=== PATIENT | female | born 1950 | race Caucasian/White ===

== ENCOUNTER 2016-11-15 09:42 | Emergency (ER) | payer OTHER ==
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
[2016-11-15 10:27] LABS: BASOPHIL % 0.7 %; EOSINOPHIL # 0.2 K/uL (0.0-0.5); EOSINOPHIL % 2.6 %; HEMATOCRIT 36.3 % (33.0-46.0); HEMOGLOBIN 12.2 g/dL (10.0-15.0); IMMATURE GRANULOCYTE % 0.2 %; LYMPHOCYTE # 1.5 K/uL (0.8-4.0); LYMPHOCYTE % 26.3 %; MCH 31.5 pg (27.0-34.0); MCHC 33.6 gm/dL (32.0-36.5); MCV 93.8 fl (83.0-98.0); MONOCYTE # 0.3 K/uL (0.0-1.0); MONOCYTE % 5.8 %; MPV 9.1 fl (9.4-12.4); NEUTROPHIL # (ANC) 3.7 K/uL (1.8-7.8); NEUTROPHIL % 64.4 %; NRBC % 0 /100WBC (0-0.00); PLATELET COUNT 264 K/uL (150-450); RBC 3.87 M/uL (3.50-5.50); RDW-CV 13.8 % (11.9-14.6); WBC 5.7 K/uL (4.0-11.0)
[2016-11-15 10:36] LABS: INR - (THERAPEUTIC) 0.93 (0.92-1.07); PROTIME 9.8 SECONDS (9.8-11.4); PTT 27 SECONDS (25-32)
[2016-11-15 10:48] LABS: ALBUMIN 3.3 gm/dL (3.5-5.0); ALK PHOS 116 IU/L (33-138); ALT 14 IU/L (12-78); AST 12 IU/L (10-40); BLOOD UREA NITROGEN 14 mg/dL (6-24); CALCIUM 8.6 mg/dL (8.5-10.5); CHLORIDE 110 mMol/L (96-110); CO2 22 mMol/L (22-32); CPK 49 IU/L (21-215); CREATININE 1.3 mg/dL (0.5-1.1); ESTIMATED GFR (MDRD EQUATION) 41; MAGNESIUM 2.3 mg/dL (1.8-2.6); SODIUM 141 mMol/L (135-145); TOTAL BILIRUBIN 0.4 mg/dL (0.0-1.5); TOTAL PROTEIN 6.9 g/dL (6.0-8.4)
== END 2016-11-15 11:53 | disposition disaster alternative care site (69) ==
LOC: GMED 09:42
PROVIDERS: Emergency Medicine
DX: R06.02 Shortness of breath (principal); F41.9 Anxiety disorder, unspecified; F32.9 Major depressive disorder, single episode, unspecified; F43.10 Post-traumatic stress disorder, unspecified; F41.0 Panic disorder [episodic paroxysmal anxiety]; I25.2 Old myocardial infarction; I25.10 Atherosclerotic heart disease of native coronary artery without angina pectoris; F17.210 Nicotine dependence, cigarettes, uncomplicated; Z86.79 Personal history of other diseases of the circulatory system; J45.909 Unspecified asthma, uncomplicated; I10 Essential (primary) hypertension; K21.9 Gastro-esophageal reflux disease without esophagitis; E78.5 Hyperlipidemia, unspecified; G47.33 Obstructive sleep apnea (adult) (pediatric); K58.9 Irritable bowel syndrome, unspecified; Z87.19 Personal history of other diseases of the digestive system; Z88.8 Allergy status to other drugs, medicaments and biological substances; Z88.5 Allergy status to narcotic agent; Z98.890 Other specified postprocedural states; Z90.89 Acquired absence of other organs; Z95.5 Presence of coronary angioplasty implant and graft; M54.9 Dorsalgia, unspecified; G89.29 Other chronic pain; J44.9 Chronic obstructive pulmonary disease, unspecified; X08.8XXA Exposure to other specified smoke, fire and flames, initial encounter; Y93.G3 Activity, cooking and baking; Y92.090 Kitchen in other non-institutional residence as the place of occurrence of the external cause

== ENCOUNTER → 2016-11-15 | Outpatient (CLI) | payer OTHER ==
[~2016-11-15] MED LIST: ARTIFICIAL TEAR15 M1 OPHTH; ASPIRIN LO-DOSE81 MG PO; BIAXIN500 MG PO; BRILINTA90 MG PO; CALCIUM CARBON600 MG PO; CYCLOBENZAPRINE5 MG PO; EPIPEN0.3 MG IM/SUB-Q; LIPITOR40 MG PO; LOMOTIL1 TAB PO; LOPRESSOR12.5 MG/0. PO; PRILOSEC20 MG PO; PRINIVIL (ZESTRI5 MG PO; SPIRIVA HANDIHA1 KIT INH; VITAMIN D-32000 UNI1 PO; ZOLOFT100 MG PO
== END | disposition disaster alternative care site (69) ==
LOC: GAMB 09:10
DX: R06.9 Unspecified abnormalities of breathing (principal); I10 Essential (primary) hypertension; F32.9 Major depressive disorder, single episode, unspecified; E78.00 Pure hypercholesterolemia, unspecified; R06.02 Shortness of breath; Z79.82 Long term (current) use of aspirin; Z79.899 Other long term (current) drug therapy; Z88.5 Allergy status to narcotic agent

== ENCOUNTER 2017-03-24 15:09 | Emergency (ER) | payer OTHER ==
--- NOTE | ~2017-03-24 | ER ---
PATIENT'S NAME: NATALIE WHITTEN [facility] AGE: 66 Y [address] ROOM: [place] [address] LOCATION: ED ADMIT DATE: 03/24/2017 ER/Outpatient Report DISCHARGE DATE: 03/24/2017 FAMILY PHYSICIAN: PHYSICIAN, NO ATTENDING PHYSICIAN: Derrick Quach CHIEF COMPLAINT: Chest pain. HISTORY OF PRESENT ILLNESS: Ms. Whitten arrives by ambulance for jaw pain. She has a history of heart attack. She had been mowing her lawn and came inside for break. She was getting tired when she developed jaw pain. This feels just like her prior heart attacks. [facility] to get evaluated immediately and that is why she called the ambulance. She said the pain was brief and it lasted only maybe a minute or two and went away on its own. She had persistence of this unusual feeling in her jaw, but denies any jaw pain currently. She never had chest pain with prior heart attacks and does not have any chest pain now. No other acute issues currently. She is otherwise feeling okay. She also was feeling very anxious and overwhelmed with the care of her mother, it is causing her significant distress. PAST MEDICAL HISTORY: Documented on the record and reviewed by me. SOCIAL HISTORY: Documented on the record and reviewed by me. MEDICATIONS: Documented on the record and reviewed by me. ALLERGIES: DOCUMENTED ON THE RECORD AND REVIEWED BY ME. REVIEW OF SYSTEMS: All systems reviewed and negative except as noted in the HPI. PHYSICAL EXAMINATION: VITAL SIGNS: Blood pressure 142/86, pulse 78, respiratory rate 16, temperature 97.0, SpO2 is 99% on room air. Pain is rated at 2/10. GENERAL: Age-appropriate female. No apparent pain or distress, upright on the exam table. NEUROLOGIC: Awake and alert. GCS 15. No focal deficits. No asymmetry. HEENT: Normocephalic, atraumatic. Eyes are PERRL. Oropharynx is clear. NECK: Supple. Trachea is midline. PATIENT'S NAME: NATALIE WHITTEN [facility] AGE: 66 Y [address] ROOM: [place] [address] LOCATION: [facility] ADMIT DATE: 03/24/2017 ER/Outpatient Report DISCHARGE DATE: 03/24/2017 FAMILY PHYSICIAN: PHYSICIAN, NO ATTENDING PHYSICIAN: Derrick Quach CHEST: Heart is regular rate and rhythm with no murmurs. LUNGS: Clear to auscultation bilateral with occasional fine crackles at the bases. ABDOMEN: Soft, nontender, and nondistended. No rebound or guarding. BACK: Normal to inspection and palpation. EXTREMITIES: Warm, well formed, well perfused with no obvious abnormalities. SKIN: Clean, dry, and intact. LABORATORY DATA AND X-RAYS: Chest x-ray is unremarkable per my review under penetrated, but no pneumonia, pneumothorax, or wide mediastinum. EKG sinus rhythm, rate of 80 with normal intervals and left axis deviation. Prior infarct inferiorly as noted and no acute changes compared to 11/15/2016. CMS with sewed potassium of 3.6, chloride is 111, BUN is 15, creatinine 1.5, GFR is 36, no appreciable LFT abnormalities. Magnesium 2.4. Troponin CK-MB and CPK are all within normal limits initially. CBC with no appreciable abnormality. INR is less than 1. IMPRESSION: 1. Jaw pain. 2. Mild azotemia with mild increased over baseline. 3. History of COPD. EMERGENCY DEPARTMENT COURSE: The patient was seen and evaluated. She received nitroglycerin with no improvement, but lower blood pressures by EMS and three baby aspirin. The patient is stabilized and was only having a vague sensation in her jaw at the time of evaluation. Initial evaluation does not reveal any acute pathology at this time. On my re-evaluation, the patient expressed her desire to leave the emergency department. I explained that this is a poor decision and I am concerned that her heart is causing her current symptoms based on her history. She expressed her understanding and persisted in her willingness to leave. She sided concerns about the care of her 91-year-old mother, who lived with her primarily. I explained that if she did do well with this, that would be a detriment to her mother, but she was undetermined. Her son was at bedside and encouraged her to stay as well, but the patient could not be persuaded. The patient did sign the against medical advice paperwork. I explained that she can return to the emergency department immediately at any time, if she changes her mind or if she wants further evaluation or her symptoms worsen. She expressed her understanding. She was convinced she had a panic attack. She is feeling better, but is very overwhelmed with this decision and wants to leave and see her Mom. All questions were answered. The patient was ultimately discharged from the emergency department with stable vital signs. PATIENT'S NAME: NATALIE WHITTEN [facility] AGE: 66 Y [address] ROOM: [place] [address] LOCATION: [facility] ADMIT DATE: 03/24/2017 ER/Outpatient Report DISCHARGE DATE: 03/24/2017 FAMILY PHYSICIAN: BRIEN LOONEY ATTENDING PHYSICIAN: Derrick Quach MD BARBARA BENITO/mariya /[id number] d: t: 03/24/17 2226, OUTPATIENT REPORT
[2017-03-24 15:47] LABS: BASOPHIL % 0.6 %; EOSINOPHIL # 0.2 K/uL (0.0-0.5); EOSINOPHIL % 3.6 %; HEMATOCRIT 37.4 % (33.0-46.0); HEMOGLOBIN 12.5 g/dL (10.0-15.0); IMMATURE GRANULOCYTE % 0.1 %; LYMPHOCYTE # 1.8 K/uL (0.8-4.0); LYMPHOCYTE % 26.6 %; MCH 31.2 pg (27.0-34.0); MCHC 33.4 gm/dL (32.0-36.5); MCV 93.3 fl (83.0-98.0); MONOCYTE # 0.4 K/uL (0.0-1.0); MONOCYTE % 6.3 %; MPV 9.2 fl (9.4-12.4); NEUTROPHIL # (ANC) 4.2 K/uL (1.8-7.8); NEUTROPHIL % 62.8 %; NRBC % 0 /100WBC (0-0.00); PLATELET COUNT 318 K/uL (150-450); RBC 4.01 M/uL (3.50-5.50); RDW-CV 13.8 % (11.9-14.6); WBC 6.7 K/uL (4.0-11.0)
[2017-03-24 15:55] LABS: INR - (THERAPEUTIC) 0.97 (0.92-1.07); PROTIME 10.2 SECONDS (9.8-11.4); PTT 26 SECONDS (25-32)
[2017-03-24 16:06] LABS: ALBUMIN 3.4 gm/dL (3.5-5.0); ALK PHOS 124 IU/L (33-138); ALT 15 IU/L (12-78); ANION GAP 11.6 (10.0-19.0); AST 13 IU/L (10-40); BLOOD UREA NITROGEN 15 mg/dL (6-24); CALCIUM 8.6 mg/dL (8.5-10.5); CHLORIDE 111 mMol/L (96-110); CO2 23 mMol/L (22-32); CPK 61 IU/L (21-215); CREATININE 1.5 mg/dL (0.5-1.1); MAGNESIUM 2.4 mg/dL (1.8-2.6); POTASSIUM 3.6 mMol/L (3.7-5.1); SODIUM 142 mMol/L (135-145); TOTAL BILIRUBIN 0.2 mg/dL (0.0-1.5); TOTAL PROTEIN 7.2 g/dL (6.0-8.4)
== END 2017-03-24 16:49 | disposition disaster alternative care site (69) ==
LOC: GMED 15:09
PROVIDERS: Emergency Medicine
DX: R68.84 Jaw pain (principal); R79.89 Other specified abnormal findings of blood chemistry; J44.9 Chronic obstructive pulmonary disease, unspecified; F17.210 Nicotine dependence, cigarettes, uncomplicated

== ENCOUNTER → 2017-03-24 | Outpatient (CLI) | payer OTHER | END | disposition disaster alternative care site (69) | LOC: GAMB 14:38 | DX: R07.89 Other chest pain (principal); F32.9 Major depressive disorder, single episode, unspecified; Z86.79 Personal history of other diseases of the circulatory system; Z86.69 Personal history of other diseases of the nervous system and sense organs; Z79.51 Long term (current) use of inhaled steroids; Z79.899 Other long term (current) drug therapy; Z88.1 Allergy status to other antibiotic agents; Z88.5 Allergy status to narcotic agent; Z88.8 Allergy status to other drugs, medicaments and biological substances ==